=== PATIENT | female | born 1940 | race Caucasian/White ===

== ENCOUNTER 2019-06-27 09:29 | Day surgery (SDC) | payer MEDICARE, OTHER ==
[~2019-06-27 09:29] MED LIST: BESIFLOXACIN HCL 0.6% OPH SUSP 5 ML BOTTLE OS PRN; CHONDR SU A NA/HYALUR INTRAOC KIT (SURGICARE) ONE; CYCLOPENTOLATE 0.2%/PHENYLEPHRINE 1% OPH SOLN 2 ML OS PRN; DORZOLAMIDE HCL 2%/TIMOLOL MALEAT 0.5% OPH SOLN 10 ML OS PRN; EPINEPHRINE INJ/PF 1 MG/1 ML AMPULE ONE; KETOROLAC TROMETHAMINE 0.45% 4 DROP/0.4 ML DROPERETTE OS PRN; LIDOCAINE 1%/PHENYLEPHRINE 1.5% 1 ML VIAL ONE; TETRACAINE HCL 0.5% OPH SOLN 4 ML OS PRN; TROPICAMIDE 1% OPH SOLN 15 ML OS PRN
[2019-06-27] MEDS: TETRACAINE HCL 0.5% OPH SOLN 4 ML OS PRN ×3 (10:18→10:48)
[2019-06-27] MEDS: CYCLOPENTOLATE 0.2%/PHENYLEPHRINE 1% OPH SOLN 2 ML OS PRN ×3 (10:18→10:41)
[2019-06-27] MEDS: BESIFLOXACIN HCL 0.6% OPH SUSP 5 ML BOTTLE OS PRN ×3 (10:19→11:54)
[2019-06-27] MEDS: TROPICAMIDE 1% OPH SOLN 15 ML OS PRN ×3 (10:19→10:41)
[2019-06-27] MEDS ORDERED: MIDAZOLAM 2 MG/2 ML INJ ONE (10:30)
[2019-06-27] MEDS ORDERED: CHONDR SU A NA/HYALUR SOD 0.5 ML DISP.SYRIN ONE ×2 (11:21→11:42)
[2019-06-27] MEDS ORDERED: ACETAZOLAMIDE SODIUM INJ 500 MG VIAL ONE (11:28)
[2019-06-27] MEDS ORDERED: ACETYLCHOLINE CHLORIDE 20 MG/2 ML KIT ONE (11:51)
[2019-06-27] MEDS ORDERED: TRIAMCINOLONE ACETONIDE 40 MG/1 ML ONE (16:37)
--- NOTE | 2019-06-28 07:41 | Operative Report ---
Operative Report-[facility] Operative Report: DATE OF SURGERY: 06/27/2019 PREOPERATIVE DIAGNOSIS: Cataracts, left eye miosis POSTOPERATIVE DIAGNOSIS: Cataract, left eye , miosis, loose zonules with subluxed lens OPERATION: Aborted cataract extraction, with vitrectomy and use of a maluygan ring Complications: subluxed natural lens with vitreous prolapse OS Intraocular Lens Model: none, patient underwent surgery because having difficulty seeing road signs and difficulty seeing medicine bottles SURGEON: Jacob Cooper MD ANESTHESIA: Topical PROCEDURE: After obtaining appropriate consent, the patient's left eye was prepped and draped in a sterile fashion as well as the surgeon in the sterile manner and cataract surgery was started. First a paracentesis blade was used to make a side-port incision. Viscoelastic was used to inflate the anterior chamber. Next a 2.4 mm incision was made with a 2.4 mm blade, clear corneal temporarily. A continuous capsulorrhexis was made using a cystotome and Utrata forceps. Following this hydrodissection was carried out to make the lens fully loose and mobile and it was rotated 90 degrees. Following this, a divide and conquer technique was used to phacoemulsify the lens. As I started to groove the lens it was noticed that there was very loose zonules for approximately 180 degrees. The natural lens had started to follow back words towards the vitreous cavity. At this point I realized I could not safely remove the lens. An anterior vitrectomy was performed to remove as much vitreous from the anterior chamber is possible. Triescence was used to stain the anterior capsule to look for any remaining vitreous. Miochol was instilled into the eye to shrink the pupil. Patient did have a history of trauma to the left eye but did not appear to have any phacodonesis in the preop exams. Patient was given 500 mg IV Diamox intraoperatively. A 10-0 nylon suture was used to close the temporal incision. This was found to be watertight. A drop of Cosopt and Besivance were instilled into the eye. A clear hard shield was placed over the eye to protect it. Patient woke up in postop recovery where the situation was explained. I immediately called the retina specialist to discuss the case. The retina specialist will see them tomorrow in their office to determine next plan of surgery and to likely place an ACIOL. The patient is supposed to be on 250 mg of oral Diamox Combigan twice a day Durezol 3 times a day and Besivance 3 times a day. These instructions were written down to the patient and explained the importance of following up. I also called the patient multiple times after the surgery to make sure that they were doing the appropriate instructions. They did not answer any of my phone calls. I will make sure that they follow-up with the retina specialist at 8:40 AM as was directed
== END 2019-06-27 12:55 | disposition home or self-care (01) ==
LOC: SC 09:29
PROVIDERS: ATTEND Internal Medicine
DX: H25.13 Age-related nuclear cataract, bilateral (principal); H04.123 Dry eye syndrome of bilateral lacrimal glands; H52.4 Presbyopia; H43.02 Vitreous prolapse, left eye; H57.03 Miosis; E11.9 Type 2 diabetes mellitus without complications; Z88.8 Allergy status to other drugs, medicaments and biological substances; Z79.84 Long term (current) use of oral hypoglycemic drugs; Z85.828 Personal history of other malignant neoplasm of skin; I35.0 Nonrheumatic aortic (valve) stenosis
CPT/HCPCS: 82962; 00142; 66984; J1120; J3490 ×4; J2250; A9270; J0171; J3300; J2370; 142

== ENCOUNTER 2019-11-26 10:48 | Day surgery (SDC) | payer MEDICARE, OTHER ==
[~2019-11-26 10:48] MED LIST changes: -BESIFLOXACIN HCL 0.6% OPH SUSP 5 ML BOTTLE OS PRN; +BUPIVACAINE HCL 0.75% INJ/PF (7.5 MG/1 ML) 10 ML SDV OD PRN; -CHONDR SU A NA/HYALUR INTRAOC KIT (SURGICARE) ONE; -CYCLOPENTOLATE 0.2%/PHENYLEPHRINE 1% OPH SOLN 2 ML OS PRN; -DORZOLAMIDE HCL 2%/TIMOLOL MALEAT 0.5% OPH SOLN 10 ML OS PRN; -EPINEPHRINE INJ/PF 1 MG/1 ML AMPULE ONE; +KETOROLAC TROMETHAMINE 0.45% 4 DROP/0.4 ML DROPERETTE OD PRN; -KETOROLAC TROMETHAMINE 0.45% 4 DROP/0.4 ML DROPERETTE OS PRN; -LIDOCAINE 1%/PHENYLEPHRINE 1.5% 1 ML VIAL ONE; +LIDOCAINE 4% INJ/PF (40 MG/ML) 5 ML AMPUL OD PRN; +MIDAZOLAM 2 MG/2 ML INJ ONE; -TETRACAINE HCL 0.5% OPH SOLN 4 ML OS PRN; -TROPICAMIDE 1% OPH SOLN 15 ML OS PRN
[2019-11-26] MEDS: BESIFLOXACIN HCL 0.6% OPH SUSP 5 ML BOTTLE OD PRN ×4 (11:08→12:43)
[2019-11-26] MEDS: TROPICAMIDE 1% OPH SOLN 15 ML OD PRN ×3 (11:08→11:28)
[2019-11-26] MEDS: CYCLOPENTOLATE 0.2%/PHENYLEPHRINE 1% OPH SOLN 2 ML OD PRN ×3 (11:08→11:28)
[2019-11-26] MEDS: TETRACAINE HCL 0.5% OPH SOLN 4 ML OD PRN ×3 (11:08→11:38)
[2019-11-26] MEDS: LIDOCAINE 1%/PHENYLEPHRINE 1.5% 1 ML VIAL ONE ×2 (11:49→11:52)
[2019-11-26] MEDS: CHONDR SU A NA/HYALUR INTRAOC KIT (SURGICARE) ONE ×2 (11:49→11:52)
[2019-11-26] MEDS: EPINEPHRINE INJ/PF 1 MG/1 ML AMPULE ONE ×2 (11:49→11:52)
[2019-11-26] MEDS: CHONDR SU A NA/HYALUR SOD 0.5 ML DISP.SYRIN ONE ×2 (12:18→12:31)
[2019-11-26] MEDS ORDERED: TRIAMCINOLONE ACETONIDE 40 MG/1 ML ONE (12:28)
[2019-11-26] MEDS ORDERED: CHONDR SU A NA/HYALUR SOD 0.5 ML DISP.SYRIN ONE (12:31)
[2019-11-26] MEDS ORDERED: ACETYLCHOLINE CHLORIDE 20 MG/2 ML KIT ONE (12:37)
[2019-11-26] MEDS: DORZOLAMIDE HCL 2%/TIMOLOL MALEAT 0.5% OPH SOLN 10 ML OD PRN ×2 (12:43)
--- NOTE | 2019-11-26 14:06 | Operative Report ---
Operative Report-[facility] Operative Report: DATE OF SURGERY: 11/26/2019 PREOPERATIVE DIAGNOSIS: 1. CATARACT, RIGHT EYE 2. PUPIL MIOSIS, RIGHT EYE POSTOPERATIVE DIAGNOSIS: 1. CATARACT, RIGHT EYE, ZONULAR DEHISCENCE 2. PUPIL MIOSIS, RIGHT EYE PROCEDURE PERFORMED: COMPLEX CATARACT EXTRACTION WITHOUT INSERTION INTRAOCULAR LENS, RIGHT EYE, ANTERIOR VITRECTOMY Total Phaco Time: 15 CDE SURGEON: MIGUELINA ALMANZA MD ANESTHESIA: Topical with MAC plus intraocular phenylephrine and lidocaine INDICATIONS FOR SURGERY: Difficulty driving especially at night INDICATIONS FOR COMPLEX: Poor pupil dilation requiring the use of a Malyugin ring PROCEDURE: The patient was brought to the operating room placed on operating table. Topical anesthesia was administered. This consisted of instrument wipe pledgets soaked in a solution of 4% Xylocaine mixed with 0.75% Marcaine in a 1:2 ratio. A 2 x 1 cm pledget was placed in the superior fornix. A 1 x 1 cm pledget was placed in the inferior fornix. The eye was patched for 5 minutes. The patch and pledgets were removed. The eye was sterilely prepped and draped in the usual manner. A lid speculum was placed in the eye. A 4-0 black silk suture was placed around the superior and inferior rectus muscle to use as traction. A conjunctival peritomy was made at the 10 o'clock position. Hemostasis was obtain ed with bipolar cautery. A posterior limbal groove was created using a crescent knife and dissected anteriorly towards the cornea. Sharp point blade was used to create a paracentesis site at the 2 o'clock position. A 2.4 mm keratome was used into the anterior chamber through the groove. Then 0.5 mL of 1% non-preserved lidocaine with phenylephrine was injected into the anterior chamber. Viscoelasti c was injected into the anterior chamber. Pupil dilation was approximately 4.5 mm. A Malyugin Ring was placed stabilizing the iris. An anterior capsulotomy was performed using Utrata forceps in a capsulorrhexis fashion. Hydrodissection and hydrodelineation was performed. Phacoemulsification was performed in the divide and conquer technique. Approximately snf through the gentle phaco the zonul es appeared to be loose inferior temporally. Phacoemulsification was continued in the iris plane and anterior chamber. 1 small piece went under the iris through the zonular dehiscence and could not be retrieved. There was a small amount of vitreous in the anterior chamber and an anterior vitrectomy was performed. Additional viscoelastic was placed throughout this process. The Malyugin ring haptics were removed and the ring was removed from the eye. Miochol was injected into the eye and the pupil was seen to be round with no vitreous to the wound .there was approximately 5 clock hours of zonular dehiscence so no intraocular lens was placed .the patient will be referred for a sutured IOL in the future .the wound was seen to be watertight under high and low pressure and no sutures were placed. The 4-0 black silk sutures and lid speculum were removed. The eye was shielded after Besivance and Cosopt drops were placed.
== END 2019-11-26 13:27 | disposition home or self-care (01) ==
LOC: SC 10:48
PROVIDERS: ATTEND Ophthalmology
DX: H25.11 Age-related nuclear cataract, right eye (principal); H57.03 Miosis; Z96.1 Presence of intraocular lens; H04.123 Dry eye syndrome of bilateral lacrimal glands; H52.4 Presbyopia; H40.031 Anatomical narrow angle, right eye; E11.9 Type 2 diabetes mellitus without complications; Z88.8 Allergy status to other drugs, medicaments and biological substances; Z79.84 Long term (current) use of oral hypoglycemic drugs; Z85.828 Personal history of other malignant neoplasm of skin
CPT/HCPCS: 66982; 82962; V2632; J3490 ×6; J2250; A9270; J0171; 142; J3300